=== PATIENT | male | born 1960 | race Caucasian/White ===

== ENCOUNTER 2020-12-09 16:29 | Emergency (ER) | payer OTHER ==
[~2020-12-09] VITALS: Ht 182.9 cm; Wt 81.7 kg
[2020-12-09 16:29] VITALS: BP 142/96
[2020-12-09] MEDS ORDERED: OTHER (16:39)
[2020-12-09 16:58] LABS: ABSOLUTE BASOPHILS 0.1 thou/uL (0.0-0.2); ABSOLUTE EOSINOPHILS 0.2 thou/uL (0.0-0.7); ABSOLUTE MONOCYTES 0.7 thou/uL (0.0-1.2); ABSOLUTE NEUTROPHILS 3.4 thou/uL (1.6-8.1); BASOPHILS 1.1 %; EOSINOPHILS 2.4 %; HEMATOCRIT 40.2 % (42.0-52.0); HEMOGLOBIN 14.2 gm/dL (14.0-18.0); LYMPHOCYTES 31.3 %; MCH 32.3 pg (26.0-34.0); MCHC 35.3 g/dL (28.0-37.0); MCV 91.6 fL (80.0-100.0); MONOCYTES 10.8 %; MPV 6.9 fl. (7.2-11.1); NUCLEATED RBCS 0 /100WBC; PLATELET COUNT* 231 thou/uL (150-400); POLYS 54.4 %; RBC 4.39 mil/uL (4.50-6.00); RDW-CV 15.4 % (10.5-14.5); WBC 6.3 thou/uL (4.0-11.0)
[2020-12-09 17:09] LABS: CALCIUM 9.4 mg/dL (8.5-10.1); CREATININE 0.9 mg/dL (0.6-1.3); POTASSIUM 3.6 mmol/L (3.5-5.1)
[2020-12-09 17:13] LABS: ALBUMIN 3.7 g/dL (3.4-5.0); TOTAL BILIRUBIN 0.3 mg/dL (<0.1-1.0); TOTAL PROTEIN 7.7 g/dL (6.4-8.2)
[2020-12-09 19:14] LABS: CSF GLUCOSE 71 mg/dl (40-70); CSF PROTEIN 123.3 mg/dl (15-45)
[2020-12-09 19:46] LABS: VOLUME 9.5 ml
[2020-12-09 19:47] LABS: CSF CLARITY SLIGHTLY HAZY; CSF COLOR PINK; CSF RBC 368 /mm3; CSF WBC 4 /mm3 (0-10)
[2020-12-09 22:28] VITALS: BP 149/109
--- NOTE | 2020-12-10 14:16 | EKG ---
[place] [address] ELECTROCARDIOGRAM REPORT Name: KATHRYNGREGORIA Room: [facility]#: [id number] Admission: 12/09/20 Attend Phys: Discharge: 12/09/20 Date of : 58 Date of Service: 12/09/20 1641 Report #: [id number] THIS REPORT FOR: //name// [facility] ED Test Date: 2020-12-09 Test Time: 16:41:50 Pat Name: GREGORIA PERALTA Department: Room: [facility] Gender: M Information Technology Project Manager: JYOTHI : 1960 Requested By: Prosper Beck Order Number: [id number] MD: Bhavesh Villalba Measurements Intervals [place] Rate: 105 P: 12 [place]: 166 QRS: 18 QRSD: 77 T: 28 QT: 319 QTc: 422 Interpretive Statements Sinus tachycardia Probable left atrial enlargement Low voltage, precordial leads Abnormal R-wave progression, early transition No previous ECG available for comparison Electronically Signed On 12-10-2020 14:16:15 CDT by Bhavesh Villalba [email or web address] <ELECTRONICALLY SIGNED> By: Bhavesh Villalba MD, FACC 12/10/20 1416 1641 1641 Bhavesh Villalba MD, [facility] /EPI
== END 2020-12-09 22:28 | disposition admitted as inpatient to this hospital (09) ==
LOC: M.ERS 16:29 → M.TBA-ER 20:11 → M.ERS 22:28
PROVIDERS: Emergency Medicine Emergency Medical Services
DX: R53.1 Weakness (principal); Z20.822 Contact with and (suspected) exposure to COVID-19; R20.2 Paresthesia of skin; F17.210 Nicotine dependence, cigarettes, uncomplicated

== ENCOUNTER 2021-01-02 18:14 | Emergency (ER) | payer OTHER ==
[~2021-01-02] VITALS: Ht 182.9 cm; Wt 86.2 kg
[~2021-01-02 18:14] MED LIST: OTHER
[2021-01-02] MEDS ORDERED: DILANTIN100 MG PO (18:25)
[2021-01-02 18:51] LABS: ABSOLUTE BASOPHILS 0.1 thou/uL (0.0-0.2); ABSOLUTE EOSINOPHILS 0.1 thou/uL (0.0-0.7); ABSOLUTE LYMPHOCYTES 2.2 thou/uL (0.8-5.3); ABSOLUTE MONOCYTES 0.6 thou/uL (0.0-1.2); ABSOLUTE NEUTROPHILS 4.3 thou/uL (1.6-8.1); BASOPHILS 1.2 %; HEMATOCRIT 40.5 % (42.0-52.0); HEMOGLOBIN 14.3 gm/dL (14.0-18.0); LYMPHOCYTES 30.8 %; MCH 33.3 pg (26.0-34.0); MCHC 35.2 g/dL (28.0-37.0); MCV 94.6 fL (80.0-100.0); MPV 7.5 fl. (7.2-11.1); NUCLEATED RBCS 0 /100WBC; PLATELET COUNT* 132 thou/uL (150-400); RBC 4.29 mil/uL (4.50-6.00); RDW-CV 16.6 % (10.5-14.5); WBC 7.2 thou/uL (4.0-11.0)
[2021-01-02 19:03] LABS: CREATININE 0.8 mg/dL (0.6-1.3); POTASSIUM 3.3 mmol/L (3.5-5.1)
[2021-01-02 19:14] LABS: ALBUMIN 3.8 g/dL (3.4-5.0); MAGNESIUM 1.7 mg/dL (1.8-2.4); TOTAL BILIRUBIN 0.8 mg/dL (<0.1-1.0)
[2021-01-02 19:58] LABS: URINE BLOOD TRACE (Negative); URINE CLARITY CLEAR; URINE COLOR STRAW; URINE GLUCOSE-RANDOM NEGATIVE (Negative); URINE KETONES 1+ (Negative); URINE LEUKOCYTES-REFLEX NEGATIVE (Negative); URINE NITRITE-REFLEX NEGATIVE (Negative); URINE PROTEIN 2+ (Negative); URINE SPECIFIC GRAVITY >= 1.030 (1.005-1.030)
[2021-01-02 20:00] LABS: ICTOTEST (BILI CONFIRMATORY) Negative (Negative); URINE BILIRUBIN 1+ (Negative)
[2021-01-02 20:14] LABS: SQUAMOUS 0-3 Few /LPF (0-3)
[2021-01-02 20:15] LABS: BACTERIA-REFLEX 1-9 Few /HPF (None Seen); CASTS None Seen /LPF (None Seen); CRYSTALS None Seen /LPF (None Seen); MUCUS 0-3 Light strn/LPF (None Seen); URINE RBC 0-2 Rare /HPF (0-2); URINE WBC-REFLEX None Seen /HPF (0-5)
[2021-01-02 20:18] VITALS: BP 122/79
[2021-01-02 20:25] LABS: AMP/METHAMP Negative (Negative); BARBITURATES Negative (Negative); BENZODIAZEPINES Negative (Negative); COCAINE Negative (Negative); METHADONE Negative (Negative); OPIATES Negative (Negative); PCP Negative (Negative); THC POSITIVE (Negative)
--- NOTE | 2021-01-03 09:22 | EKG ---
[place] [address] ELECTROCARDIOGRAM REPORT Name: GREGORIA PERALTA [facility]#: [id number] Admission: 01/02/21 Attend Phys: Discharge: 01/02/21 Date of : 58 Date of Service: 01/02/211830 Report #: [id number] THIS REPORT FOR: //name// [facility] ED Test Date: 2021-01-02 Test Time: 18:31:43 Pat Name: GREGORIA PERALTA Department: Room: Gender: Civil Engineering Drafter: TRAVON : 1960 Requested By: Kierra He Order Number: [id number] MD: Matty Shaver Measurements Intervals [place] Rate: 106 P: 17 [place]: 166 QRS: 12 QRSD: 85 T: 6 QT: 336 QTc: 447 Interpretive Statements Sinus tachycardia Abnormal R-wave progression, early transition Compared to ECG 12/09/2020 16:41:50 No significant changes Electronically Signed On 01-03-2021 9:22:18 CDT by Matty Shaver [email or web address] <ELECTRONICALLY SIGNED> By: Matty Shaver MD, [facility] 01/03/21 0922 [id number] Matty Shaver MD, [facility] /EPI
== END 2021-01-02 20:20 | disposition home or self-care (01) ==
LOC: M.ERS 18:14
PROVIDERS: Nurse Practitioner Family
DX: F10.20 Alcohol dependence, uncomplicated (principal); Y90.8 Blood alcohol level of 240 mg/100 ml or more; R07.89 Other chest pain; F17.210 Nicotine dependence, cigarettes, uncomplicated; Z79.899 Other long term (current) drug therapy